=== PATIENT | male | born 1990 | race Hispanic/Latino ===

== ENCOUNTER → 2021-06-05 | Emergency (ER) | payer OTHER ==
[~2021-06-05] VITALS: Ht 157.5 cm; Wt 81.6 kg
[~2021-06-05] MED LIST: ACETAMINOPHEN 500 MG TABLET ONE; ACETAMINOPHEN 500 MG TABLET PO ONE
[2021-06-05 06:36] VITALS: BP 120/71
== END ==
LOC: EDH 02:41
DX: U07.1 COVID-19 (principal); J06.9 Acute upper respiratory infection, unspecified
CPT/HCPCS: 71045; 87635; 87804 ×2; 87880; 99284; C9803